=== PATIENT | female | born 1970 | race Caucasian/White ===

== ENCOUNTER 2017-11-13 18:43 | Emergency (ER) | payer BC ==
[2017-11-13] MEDS ORDERED: diphenhydrAMINE 50 MG/ML SDV IM ONE (19:52)
[2017-11-13] MEDS ORDERED: Ketorolac 30 MG/ML SDV IM ONE (19:52)
[2017-11-13] MEDS ORDERED: Prochlorperazine 10 MG/2 ML SDV IM ONE (19:52)
--- NOTE | 2017-11-13 21:12 | EDM.PDOC ---
ED HPI GENERAL MEDICAL PROBLEM - General Chief Complaint: Headache Stated Complaint: MIGRAINE Time Seen by Provider: 11/13/17 19:09 Source of Information: Reports: Patient History Limitations: Reports: No Limitations - History of Present Illness INITIAL COMMENTS - FREE TEXT/NARRATIVE: This patient comes in for a headache that began yesterday. She does have a history of occasional bad headache similar to this. Previously she was using Imitrex but she's out. In the past she was given Toradol and Benadryl in clinic and that seemed to work pretty well. There is nothing unusual about this headache. She's not having any other neurologic symptoms like weakness so forth. The headache is all over. 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: Dermatologic History: Reports: Other (See Below) Other Dermatologic History: acne - Past Surgical History GI Surgical History: Reports: Cholecystectomy Neurological Surgical History: Reports: Lumbar Spine, Other (See Below) Other Neurological Surgeries/Procedures: injections Musculoskeletal Surgical History: Reports: Arthroscopic Procedure Social & Family History - Tobacco Use Smoking Status *Q: Never Smoker - Caffeine Use Caffeine Use: Reports: Coffee - Recreational Drug Use Recreational Drug Use: No ED ROS GENERAL - Review of Systems Review Of Systems: ROS reveals no pertinent complaints other than HPI. - Physical Exam Exam: See Below Exam Limited By: No Limitations General Appearance: Alert, WD/WN, Mild Distress Eye Exam: Bilateral Eye: EOMI, PERRL Throat/Mouth: Normal Oropharynx Head Exam: Atraumatic Neck: Supple Respiratory/Chest: Lungs Clear Cardiovascular: Regular Rate, Rhythm Neuro Exam (Abbreviated): Alert, Oriented, CN II-XII Intact, Normal Cognition, No Motor/Sensory Deficits Extremities: Normal Inspection Psychiatric: Normal Affect Skin Exam: Warm, Dry Course - Vital Signs Last Recorded V/S: Last Vital Signs Temp 37.1 C 11/13/17 19:38 Pulse 80 11/13/17 19:38 Resp 16 11/13/17 19:38 BP 134/79 11/13/17 19:38 Pulse Ox 98 11/13/17 19:38 - Orders/Labs/Meds Meds: Medications Discontinued Medications Generic Name Dose Route Start Last Admin Trade Name Ruthy PRN Reason Stop Dose Admin Diphenhydramine HCl 50 mg 11/13/17 19:52 11/13/17 20:05 Benadryl IM 11/13/17 19:53 50 mg ONETIME ONE Administration Ketorolac Tromethamine 30 mg 11/13/17 19:52 11/13/17 20:05 Toradol IM 11/13/17 19:53 30 mg ONETIME ONE Administration Prochlorperazine Edisylate 10 mg 11/13/17 19:52 11/13/17 20:06 Compazine IM 11/13/17 19:53 10 mg ONETIME ONE Administration - Re-Assessments/Exams Free Text/Narrative Re-Assessment/Exam: 11/14/17 06:12 This patient received by IM injection Compazine 10 mg Benadryl 50 mg and finally Toradol 30 mg IM. She had good relief of her pain at the time of discharge Departure - Departure Time of Disposition: 21:11 Disposition: Home, Self-Care 01 Condition: Fair Clinical Impression: Migraine - Discharge Information Instructions: Migraine Headache Referrals: PCP,None [Primary Care Provider] - Forms: ED Department Discharge Additional Instructions: The medicine that you received, Compazine, will cause sedation at least for the next 12 hours so use caution.
== END 2017-11-13 21:22 | disposition home or self-care (01) ==
LOC: JP.ED 18:43
DX: G43.909 Migraine, unspecified, not intractable, without status migrainosus (principal); Z88.6 Allergy status to analgesic agent; Z88.2 Allergy status to sulfonamides
CPT/HCPCS: 96372; 99284; J0780; J1200; J1885